=== PATIENT | female | born 1990 | race African-American/Black ===

== ENCOUNTER 2023-07-01 07:27 | Emergency (ER) | payer MEDICAID, SELFPAY ==
[2023-07-01 07:31] VITALS: BP 129/84; PULSE 105; RESP 16; TEMP 37.6; O2SAT 100; BMI 24.5
--- NOTE | 2023-07-01 07:41 | CT_ITS ---
WS: [id number] CT ABDOMEN AND PELVIS NONCONTRAST HISTORY: right flank and low abd pain TECHNIQUE: Imaging performed through the abdomen and pelvis. Coronal and sagittal reformats are submi tted. All CT scans at [facility] use at least one of these dose optimization techniques: auto mated exposure control; mA and/or kV adjustment per patient size (includes targeted exams where dose is matched to clinical indication); or iterative reconstruction. DLP: 382.92 mGy.cm COMPARISON: None available. Lower thorax: Lung bases are clear. Visualized heart is normal. No hiatal hernia. Liver: Normal size liver. No mass or bile duct dilatation. Gallbladder: Prior cholecystectomy. Pancreas: Normal size and attenuation. Normal pancreatic duct. No pancreatitis or mass. Spleen: Normal. Adrenal glands: Normal. No mass. Right kidney: Mildly enlarged edematous RIGHT kidney with minimal perinephric stranding. Left kidney: Normal size kidney with no mass or hydronephrosis. Aorta: Normal abdominal aorta, no aneurysm or atherosclerosis. No free fluid, intraperitoneal air or significant lymphadenopathy. GI tract: Stomach is nondistended. No small bowel obstruction. The appendix is measuring top normal s ize and there is a small amount of adjacent inflammation which may be related to the inflammation ass ociated with the RIGHT kidney. There is also wall thickening of the cecum in a masslike configuration . Cecum measures up to 1.4 cm in diameter and needs to be further evaluated. Abdominal wall: Negative. No hernia. Pelvis: Nondistended urinary bladder. Osseous structures: Unremarkable. IMPRESSION: 1. Mildly enlarged edematous RIGHT kidney with perinephric stranding. No obstruction. Suspect pyelon ephritis. 2. There is additional mild inflammation adjacent to the appendix although the appendix is not dilat ed. This may be secondary to the RIGHT pyelonephritis edema. 3. Focal wall thickening of the cecum. Less prominent thickening along the ascending colon. This michael uld be further evaluated on follow-up exams after treatment for possible colitis. Colonoscopy may be necessary. 4. Prior cholecystectomy. Notified Shelly Luong MD at 07/01/2023 9:05 AM.
--- NOTE | 2023-07-01 07:41 | ED_ITS ---
HPI - Abdominal Pain 2 General: Chief Complaint: Abdominal Pain Stated Complaint: Back and abd pain Time Seen by Provider: 07/01/23 07:37 History of Present Illness: 32-year-old -[place] female who presents the emergency room with right flank pain. She said she has been being treated for urinary tract infection for almost 2 weeks now. She has been being treated with clindamycin. Today she says she has dysuria. She has pain in her pelvic area particularly when she urinates. She is pain in her right flank and in her right groin. She had a fever this morning at home and has a temp of 99.7 on presentation. She has had some nausea but no vomiting. Review of Systems 2 Narrative: Constitutional symptoms: Negative except as documented in HPI. Skin symptoms: Negative except as documented in HPI. Eye symptoms: Negative except as documented in HPI. ENMT symptoms: Negative except as documented in HPI. Respiratory symptoms: Negative except as documented in HPI. Cardiovascular symptoms: Negative except as documented in HPI. Gastrointestinal symptoms: Negative except as documented in HPI. Genitourinary symptoms: Negative except as documented in HPI. Musculoskeletal symptoms: Negative except as documented in HPI. Neurologic symptoms: Negative except as documented in HPI. Psychiatric symptoms: Negative except as documented in HPI. Endocrine symptoms: Negative except as documented in HPI. Physical Exam 2 Narrative: EXAM NARRATIVE: General: Alert, no acute distress. Skin: Warm, dry. Head: Normocephalic, atraumatic. Neck: Supple, trachea midline. Eye: Extraocular movements are intact. Ears, nose, mouth and throat: mucosa moist. Cardiovascular: Regular, Normal peripheral perfusion. Respiratory: Lungs are clear to auscultation, respirations are non-labored, breath sounds are equal, Symmetrical chest wall expansion. Gastrointestinal: Soft, right flank and pelvic pain, Non distended, Normal bowel sounds. Musculoskeletal: Normal ROM, no deformity. Neurological: Alert and oriented, No focal neurological deficit observed. Psychiatric: Cooperative, appropriate mood & affect. Course 2 Vital Signs: Vital signs: Vital Signs Temperature 99.7 F H 07/01/23 07:31 Pulse Rate 99 07/01/23 11:10 Respiratory Rate 16 07/01/23 07:31 Blood Pressure 101/58 07/01/23 11:10 Pulse Oximetry 98 07/01/23 11:10 Oxygen Delivery Me thod Room Air 07/01/23 11:10 MDM - Abdominal Pain Medical Decision Making Medical decision making: Differential diagnosis including but not limited to and based on the above HPI, review of systems and physical exam: Patient with known urinary tract infection now with pelvic and flank pain. I have concern for pyelonephritis and cystitis. Checking a CBC and a BMP. CT was ordered without contrast because there also would be concern for a kidney stone. Orders placed to evaluate differential diagnosis based on the above differential, HPI and physical exam Lab Review: Laboratory results were reviewed and interpreted by myself the emergency room physician. White count is 8.5. Hemoglobin is 12.9. BUN and creatinine are 8 and 0.6. Urine does appear significantly infected. CT of the abdomen pelvis without contrast: 1. Mildly enlarged edematous RIGHT kidney with perinephric stranding. No obstruction. Suspect pyelonephritis. 2. There is additional mild inflammation adjacent to the appendix although the appendix is not dilated. This may be secondary to the RIGHT pyelonephritis edema. 3. Focal wall thickening of the cecum. Less prominent thickening along the ascending colon. This should be further evaluated on follow-up exams after treatment for possible colitis. Colonoscopy may be necessary. 4. Prior cholecystectomy. CT of the abdomen pelvis with contrast was ordered to evaluate abnormal findings on the non-contrast CT. 1. Mildly enlarged RIGHT kidney with acute nephritis. Small renal abscesses are identified. The largest in the upper pole measures 1.3 x 1.1 cm. 2. No ureteral obstruction although there is very mild enhancement of the proximal ureter. 3. Normal appendix. 4. Previously described suspicious findings in the cecum and ascending colon no longer present. This may have been material within the GI tract which has since moved. Reexamination: Consultation: I consulted Dr. Godfrey with urology at [place]. He says we could attempt outpatient treatment with gram-negative antibiotics or she might need transfer to someplace with interventional radiology if the small abscesses needed drained. Given that the patient does not have hydronephrosis does not have leukocytosis and has stable vital signs also combined with the fact that she is from [facility] and here traveling for work he recommends IV Rocephin here and home on oral Levaquin. Lab Data 07/01/23 08:28 07/01/23 08:28 Labs/Radiology: Laboratory Results WBC 8.61 10^3/uL (3.29-11.43) 07/01/23 08: RBC 3.87 10^6/uL (3.85-5.65) 07/01/23 08:28 Hgb 12.90 g/dL (11.27-16.99) 07/01/23 08:28 Hct 37.2 % (36-47) 07/01/23 08: MCV 96.1 fl (85-98) 07/01/23 08:28 MCH 33.3 pg (27-33) H 07/01/23 08:28 MCHC 34.7 g/dL (30-55) 07/01/23 08:28 RDW 11.7 % (12.1-15.1) L 07/01/23 08:28 Plt Count 178 10^3/cmm (157-399) 07/01/23 08:28 MPV 10.1 fL (7.4-10.4) 07/01/23 08:28 Neut % (Auto) 71.2 % 07/01/23 08:28 Lymph % (Auto) 15.4 % 07/01/23 08:28 [place] % (Auto) 12.2 % 07/01/23 08:28 Eos % (Auto) 0.5 % 07/01/23 08:28 Baso % (Auto) 0.5 % 07/01/23 08:28 Neut # (Auto) 6.13 10^3/uL (1.8-7.7) 07/01/23 08: Lymph # (Auto) 1.3 10^3/uL (0.8-4.8) 07/01/23 08:28 Morris # (Auto) 1.1 10^3/uL (0.2-0.9) H 07/01/23 08:28 Eos # (Auto) 0.0 10^3/uL (0.0-0.8) 07/01/23 08:28 Baso # (Auto) 0.0 10^3/uL (0.0-0.1) 07/01/23 08:28 Nucleated RBC % (auto) 0 % 07/01/23 08:28 Nucleated RBCs # 0.0 /100WBC 07/01/23 08:28 Sodium 136 mmol/L (136-145) 07/01/23 08:28 Potassium 4.1 mmol/L (3.5-5.1) 07/01/23 08:28 Chloride 103 mmol/L (98-107) 07/01/23 08:28 Carbon Dioxide 23 mmol/L (22-29) 07/01/23 08:28 Anion Gap 14.1 (5-19) 07/01/23 08:28 BUN 8 mg/dL (6-20) 07/01/23 08:28 Creatinine 0.6 mg/dL (0.5-0.9) 07/01/23 08:28 GFR Calculation 141.1 mL/min (90-130) H 07/01/23 08:28 Glucose 86 mg/dL (65-115) 07/01/23 08:28 Calculated Osmolality 280 mOsm/kg (285-295) L 07/01/23 08:28 Calcium 9.0 mg/dL (8.5-10.5) 07/01/23 08:28 C-Reactive Protein 9.5 mg/L (0.0-4.9) H 07/01/23 08:28 HCG, Qual Negative (Negative) 07/01/23 07:46 Urine Color Yellow (Yellow) 07/01/23 07:46 Urine Appearance Cloudy (CLEAR) A 07/01/23 07:46 Urine pH 6 (5-7) 07/01/23 07:46 Ur Specific [place] 1.010 (1.005-1.030) 07/01/23 07:46 Urine Protein 1+ (Negative) H 07/01/23 07:46 Urine Glucose (UA) Norm (Normal) 07/01/23 07:46 Urine Ketones Negative (Negative) 07/01/23 07:46 Urine Blood 3+ (Negative) H 07/01/23 07:46 Urine Nitrate Positive (Negative) H 07/01/23 07:46 Urine Bilirubin Neg (Negative) 07/01/23 07:46 Urine Urobilinogen Neg mg/dL (Negative) 07/01/23 07:46 Ur Leukocyte Esterase 2+ (Negative) H 07/01/23 07:46 Urine RBC 10-15 /hpf (0-2) H 07/01/23 07:46 Urine WBC >100 /hpf (0-5) H 07/01/23 07:46 Ur Squamous Epith Cells 0-4 /hpf (0-5) H 07/01/23 07:46 Amorphous Sediment Not Reportable 07/01/23 07:46 Urine Bacteria 1+ /hpf (NONE) H 07/01/23 07:46 All radiology interpretation(s) finalized by discharge Other Data Assessment and plan: -IV Rocephin in the emergency room. -Urology consultation: Home on Levaquin and follow-up with urologist if symptoms do not improve - Discharged home - Discussed findings and plan with patient. Answered any questions. - All laboratory values were reviewed and interpreted personally by myself, the ER physician - All imaging was reviewed and interpreted personally by myself, the ER physician. - Evaluation and treatment of this problem were appropriate in the emergency setting Discharge Plan Discharge Patient Disposition: Home Clinical Impression: Pyelonephritis Condition: Stable Prescriptions: New levofloxacin 750 mg tablet 750 mg PO DAILY 10 Days Qty: 10 0RF No Action clindamycin HCl 300 mg capsule 300 mg PO Q6H ibuprofen 200 mg Tablet 800 mg PO Q6H PRN (Reason: Pain) naproxen 500 mg tablet 500 mg PO BID Discharge Orders: Discharge ED (Routine); Ordered 07/01/23 Ordered By: Shelly Luong Discharge Diet: Usual diet Discharge Activity: Return to work/school after cleared by PCP/Specialist Patient Instructions: Kidney Infection (ED), Opioid Safety, Pain Management Coding Level of Care Code ED [employer] for [employer] Esquivel
[2023-07-01 07:50] VITALS: BP 129/84; PULSE 96; O2SAT 99
[2023-07-01 07:56] LABS: HCG Qualitative Urine. Negative (Negative)
[2023-07-01 08:20] LABS: Add Urine Culture? Yes; Bacteria Urine 1+ /hpf; Bilirubin Urine Neg (Negative); Blood Urine 3+ (Negative); Glucose Urine UA Norm (Normal); Ketones Urine Negative (Negative); Leukocyte Esterase Urine 2+ (Negative); Nitrate Urine Positive (Negative); Protein Urine 1+ (Negative); Squamous Epithelial Cell Urine 0-4 /hpf (0-5); Urine Appearance Cloudy (CLEAR); Urine Color Yellow (Yellow); Urobilinogen Urine Neg (Negative); WBC Urine >100 /hpf (0-5); pH Urine 6 (5-7)
[2023-07-01 08:32] LABS: Basophils % 0.5 %; Eosinophils % 0.5 %; Hematocrit 37.2 % (36-47); Lymphocytes # 1.3 10^3/uL (0.8-4.8); Lymphocytes % 15.4 %; Mean Corpuscular HGB Conc 34.7 g/dL (30-55); Mean Corpuscular Hemoglobin 33.3 pg (27-33); Mean Corpuscular Volume 96.1 fl (85-98); Mean Platelet Volume 10.1 fL (7.4-10.4); Monocytes # 1.1 10^3/uL (0.2-0.9); Monocytes % 12.2 %; Neutrophils # 6.13 10^3/uL (1.8-7.7); Neutrophils % 71.2 %; Nucleated Red Blood Cells % 0 %; Platelet Count 178 10^3/cmm (157-399); Red Blood Count 3.87 10^6/uL (3.85-5.65); Red Cell Distribution Width 11.7 % (12.1-15.1); White Blood Count 8.61 10^3/uL (3.29-11.43)
[2023-07-01 08:49] LABS: Anion Gap 14.1 (5-19); Blood Urea Nitrogen 8 mg/dL (6-20); C Reactive Protein 9.5 mg/L (0.0-4.9); Carbon Dioxide 23 mmol/L (22-29); Chloride 103 mmol/L (98-107); Creatinine Clr Calc Pharmacy 126.0332; Glomerular Filtration Rate 141.1 mL/min (90-130); Glucose 86 mg/dL (65-115); Osmolality Calculated 280 mOsm/kg (285-295); Potassium 4.1 mmol/L (3.5-5.1); Sodium 136 mmol/L (136-145)
--- NOTE | 2023-07-01 09:07 | CT_ITS ---
WS: [id number] CT ABDOMEN AND PELVIS WITH CONTRAST HISTORY: Abdominal pain, abnormal noncontrast CT TECHNIQUE: Imaging performed of the abdomen and pelvis with IV contrast. Two phase imaging of the abd omen. Coronal and sagittal reformats are submitted. All CT scans at [facility] use at least o ne of these dose optimization techniques: automated exposure control; mA and/or kV adjustment per pat ient size (includes targeted exams where dose is matched to clinical indication); or iterative recons truction. IV CONTRAST: Omnipaque 350; 100 mL IV. Oral contrast: No DLP: 556.90 mGy.cm COMPARISON: 07/01/[address] Lower thorax: Lung bases are clear. Heart is normal size. No hiatal hernia. Liver/biliary system: Normal size with no intrahepatic dilatation. Gallbladder: Prior cholecystectomy. Pancreas: Normal size pancreas and pancreatic duct. No adjacent inflammation. Spleen: Normal size spleen. No mass or infarct. Adrenal glands: Normal. Right kidney: Mildly enlarged edematous RIGHT kidney. There are 2 low-attenuation areas of nonenhance ment within the RIGHT kidney. Towards the superior pole 1.3 x 1.1 cm area of decreased enhancement. A long the inferior pole 1.0 x 1.9 cm area of decreased enhancement. There is no obstruction. Mild juan ureteral enhancement but no dilatation. Left kidney: Negative. Aorta: Normal. Lymphadenopathy: None. Free fluid: None. GI tract: Nondistended stomach. No small bowel obstruction. Previously described wall thickening in t he cecum and the edema in the ascending colon is no longer as suspicious. There is no wall thickening . The changes seen on the noncontrast study may've been related to gastrointestinal contents. No obst ructive pattern. Appendix is normal. Abdominal wall: Unremarkable abdominal wall. No hernia. Pelvis: No free fluid or adenopathy within the pelvis. Nondistended urinary bladder. Bones: Unremarkable. IMPRESSION: 1. Mildly enlarged RIGHT kidney with acute nephritis. Small renal abscesses are identified. The larg est in the upper pole measures 1.3 x 1.1 cm. 2. No ureteral obstruction although there is very mild enhancement of the proximal ureter. 3. Normal appendix. 4. Previously described suspicious findings in the cecum and ascending colon no longer present. This may have been material within the GI tract which has since moved.
[2023-07-01] MEDS: cefTRIAXone 1,000 MG in water for injection-sterile 2.1 ML 2.10000000000000009 MG IM (09:17)
[2023-07-01 09:56] VITALS: BP 129/84
[2023-07-01] MEDS: iohexol 350 mg/mL 500 mL Btl (per mL) IV (10:04)
[2023-07-01] MEDS: ketorolac 30 mg/mL INJ IVP (10:18)
[2023-07-01 10:49] VITALS: BP 101/58; PULSE 97; O2SAT 98
[2023-07-01 11:10] VITALS: BP 101/58; PULSE 99; O2SAT 98
[2023-07-01 12:27] VITALS: BP 114/62; PULSE 102; O2SAT 99
== END 2023-07-01 12:30 | disposition home or self-care (01) ==
PROVIDERS: Emergency Provider Emergency Medicine
DX: N12 Tubulo-interstitial nephritis, not specified as acute or chronic (principal)
CPT/HCPCS: 74176; 74177; 80048; 81001; 81025; 85025; 86140; 87077; 87086; 87186; 96372; 96374; 99285; J0696; J1885; Q9967